=== PATIENT | female | born 1960 | race Caucasian/White ===

== ENCOUNTER → 2017-09-21 | Outpatient (CLI) | payer OTHER ==
[~2017-09-21] MED LIST: ATIVAN0.5 MG PO; BENTYL20 MG PO; BUSPAR10 MG PO; CATAPRES0.2 MG PO; CYMBALTA60 MG PO; DESYREL100 MG PO; DONNATAL1 TABLET PO; FLAGYL500 MG PO; LEVEMIR100 UNIT/1 SQ; LEVEMIR100 UNIT/2 SC; LUNESTA3 MG PO; NAPROSYN500 MG PO; NAPROXEN375 MG PO; NEURONTIN300 MG PO; NORCO 5/3251 TABLET PO; OMEPRAZOLE40 M1 PO; PHENERGAN25 MG PR; PROMETHAZINE HC25 M1 PO; RESTORIL30 MG PO; RISPERIDONE PO; TOPAMAX100 MG PO
[2017-09-21 07:21] LABS: HEMATOCRIT 44.7 % (36.0-46.0); HEMOGLOBIN 15.4 G/DL (11.9-15.5); MCH 29.7 PG (29.0-34.0); MCHC 34.5 G/DL (30.0-36.0); MCV 86.1 FL (83-99); PLATELET COUNT 269 K/uL (156-360); RBC DIS.WIDTH-CV 12.2 % (11.8-14.6); RBC DIS.WIDTH-SD 38.6 % (39-53); RED BLOOD COUNT 5.19 M/uL (3.80-5.20); WHITE BLOOD COUNT 13.5 K/uL (4.1-10.2)
[2017-09-21 07:32] LABS: PTT 27.2 SEC (25-37)
== END | disposition home or self-care (01) ==
LOC: OPR 06:37 → EDSTATUS 07:00 → OPR 09-23 10:00
PROVIDERS: Anesthesiology
PROC: 0BBC3ZX Excision of Right Upper Lung Lobe, Percutaneous Approach, Diagnostic (ICD-10-PCS; principal; 2017-09-21)
PROC: BB241ZZ Computerized Tomography (CT Scan) of Bilateral Lungs using Low Osmolar Contrast (ICD-10-PCS; principal; 2017-09-21)
DX: J84.10 Pulmonary fibrosis, unspecified (principal); F33.3 Major depressive disorder, recurrent, severe with psychotic symptoms; E10.9 Type 1 diabetes mellitus without complications; K51.818 Other ulcerative colitis with other complication; F17.210 Nicotine dependence, cigarettes, uncomplicated
CPT/HCPCS: 71045; 77012; 82948; 85027; 85610; 85730; 88305; 88312; J1815; J3010